=== PATIENT | male | born 1990 ===

== ENCOUNTER 2021-10-09 07:06 | Emergency (ER) | payer BC ==
[2021-10-09] MEDS ORDERED: predniSONE 20 MG Tab PO ONE (07:39)
[2021-10-09] MEDS ORDERED: Cetirizine 10 MG Tab PO ONE (07:40)
[2021-10-09] MEDS ORDERED: Famotidine 20 MG Tab PO ONE (07:40)
== END 2021-10-09 08:20 | disposition home or self-care (01) ==
LOC: MW.ED 07:06
DX: T78.3XXA Angioneurotic edema, initial encounter (principal); Z88.8 Allergy status to other drugs, medicaments and biological substances; Z79.899 Other long term (current) drug therapy
CPT/HCPCS: 99283; A9270; 99282